=== PATIENT | female | born 1985 | race Caucasian/White ===

== ENCOUNTER → 2019-09-19 09:16 | Outpatient (CLI) | payer OTHER, MEDICAID, SELFPAY ==
[2019-09-19 11:00] LABS: Prolactin 8.2 ng/mL (3.0-18.6)
[2019-09-19 11:16] LABS: Estradiol, Total 26.4 pg/mL
[2019-09-19 11:37] LABS: Thyroid Stimulating Hormone 1.17 uIU/mL (0.47-4.68)
== END ==
PROVIDERS: Referring Provider Obstetrics & Gynecology; Visit Provider Obstetrics & Gynecology
DX: Z31.49 Encounter for other procreative investigation and testing (principal); Z01.83 Encounter for blood typing; Z13.29 Encounter for screening for other suspected endocrine disorder; Z31.41 Encounter for fertility testing
CPT/HCPCS: 36415; 82397; 82670; 83001; 84146; 84443